=== PATIENT | female | born 1950 | race American Indian/Alaskan Native ===

== ENCOUNTER 2017-04-08 16:58 | Inpatient (IN) | payer OTHER ==
[2017-04-08] VITALS (8 sets, daily range): BP systolic 109–164; BP diastolic 47–86
[~2017-04-08] VITALS: Ht 162.6 cm; Wt 114.7 kg
[2017-04-08] MEDS ORDERED: SODIUM CHLORIDE 0.9% 1,000ML IVBOLUS ONE (18:00)
[2017-04-08] MEDS ORDERED: SODIUM CHLORIDE FLUSH 10ML SYR IVF ONE (18:00)
[2017-04-08] MEDS ORDERED: MULT-6 PO (18:05)
[2017-04-08] MEDS ORDERED: LOSA100T6 PO (18:05)
[2017-04-08] MEDS ORDERED: LOVA10TA PO (18:05)
[2017-04-08] MEDS ORDERED: METF500T4 PO (18:06)
[2017-04-08] MEDS ORDERED: FISH1CAP PO (18:07)
[2017-04-08 18:22] LABS: WHITE BLOOD COUNT 12.5 x10^3/uL (3.4-10)
[2017-04-08 18:25] LABS: ASPARTATE AMINO TRANSFERASE 15 U/L (15-37); BLOOD UREA NITROGEN 16 mg/dL (7-18); HEMATOCRIT 19.9 % (34.6-47.8); HEMOGLOBIN 6.1 g/dL (11.7-16.4)
[2017-04-08] MEDS ORDERED: PANTOPRAZOLE 40 MG IV IVPush ONE (18:30)
[2017-04-08] MEDS ORDERED: PANTOPRAZOLE 40 MG IV ONE (18:35)
[2017-04-08 18:49] LABS: ANISOCYTOSIS 1+; POLYCHROMASIA 1+
[2017-04-08] MEDS ORDERED: ACETAMINOPHEN 325 MG TABLET PO PRN (20:30)
[2017-04-08] MEDS ORDERED: DOCUSATE 100 MG CAPSULE PO PRN (20:30)
[2017-04-08] MEDS ORDERED: hydrALAzine 20 MG/ML, 1ML IVPush PRN (20:30)
[2017-04-08] MEDS ORDERED: morphine SULFATE 10 MG/ML, 1ML IVPush PRN (20:30)
[2017-04-08] MEDS ORDERED: BISACODYL 10 MG SUPP PR PRN (20:30)
[2017-04-08] MEDS ORDERED: ONDANSETRON 2MG/ML, 2ML IVPush PRN (20:30)
[2017-04-08] MEDS ORDERED: ENALAPRILAT 1.25 MG/ML, 2ML IVPush PRN (20:30)
[2017-04-08] MEDS ORDERED: OXYcodone IR 5MG TABLET PO PRN (20:30)
[2017-04-08] MEDS ORDERED: POLYETHYLENE GLYCOL 17 GM PACKET PO PRN (20:30)
[2017-04-08] MEDS ORDERED: PANTOPRAZOLE 80 MG in SODIUM CHLORIDE 0.9% 50 ML IV ONE (21:00)
[2017-04-08] MEDS: SODIUM CHLORIDE 0.9% 1,000 ML IV SCH (22:51)
[2017-04-08] MEDS: PANTOPRAZOLE 80 MG in SODIUM CHLORIDE 0.9% 100 ML IV SCH (22:55)
[2017-04-09] VITALS (7 sets, daily range): BP systolic 129–147; BP diastolic 68–88
[2017-04-09 03:02] LABS: WHITE BLOOD COUNT 12.2 x10^3/uL (3.4-10)
[2017-04-09 03:06] LABS: HEMATOCRIT 21.3 % (34.6-47.8); HEMOGLOBIN 6.9 g/dL (11.7-16.4)
[2017-04-09 03:07] LABS: ASPARTATE AMINO TRANSFERASE 16 U/L (15-37); BLOOD UREA NITROGEN 15 mg/dL (7-18)
[2017-04-09 03:31] LABS: DIFF TOTAL CELLS COUNTED 100 CELL DIFF
[2017-04-09 03:34] LABS: VERIFY COUNTS? YES
[2017-04-09 03:35] LABS: HYPOCHROMIA 1+; MICROCYTOSIS 1+; POLYCHROMASIA 1+
[2017-04-09 04:13] LABS: PATH.CAST-FLAG NOT PRESENT; SPERM-FLAG NOT PRESENT; SRC-FLAG NOT PRESENT; XTAL-FLAG NOT PRESENT; YLC-FLAG NOT PRESENT
[2017-04-09] MEDS: SODIUM CHLORIDE 0.9% 1,000 ML IV SCH (08:29)
[2017-04-09 08:36] LABS: HEMATOCRIT 25.6 % (34.6-47.8); HEMOGLOBIN 8.2 g/dL (11.7-16.4)
[2017-04-09] MEDS: CEFTRIAXONE PMX 1GM/50ML 50 ML IV SCH (11:10)
[2017-04-09] MEDS: PANTOPRAZOLE 80 MG in SODIUM CHLORIDE 0.9% 100 ML IV SCH ×2 (11:10→20:57)
[2017-04-09] MEDS ORDERED: INSULIN ASPART 100 UNITS/ML, PEN SQ-INSULIN SCH (13:00)
[2017-04-09 14:35] LABS: HEMATOCRIT 26.4 % (34.6-47.8); HEMOGLOBIN 8.6 g/dL (11.7-16.4)
[2017-04-09] MEDS: INSULIN ASPART 100 UNITS/ML, PEN SQ-INSULIN SCH ×2 (16:00→19:19)
[2017-04-09] MEDS ORDERED: ACETAMINOPHEN 325 MG TABLET PO PRN (18:30)
[2017-04-09] MEDS ORDERED: POLYETHYLENE GLYCOL 17 GM PACKET PO PRN (18:30)
[2017-04-09] MEDS ORDERED: BISACODYL 10 MG SUPP PR PRN (18:30)
[2017-04-09] MEDS ORDERED: ENALAPRILAT 1.25 MG/ML, 2ML IVPush PRN (18:30)
[2017-04-09] MEDS ORDERED: ONDANSETRON 2MG/ML, 2ML IVPush PRN (18:30)
[2017-04-09] MEDS ORDERED: OXYcodone IR 5MG TABLET PO PRN (18:30)
[2017-04-09] MEDS ORDERED: DOCUSATE 100 MG CAPSULE PO PRN (18:30)
[2017-04-09] MEDS ORDERED: hydrALAzine 20 MG/ML, 1ML IVPush PRN (18:30)
[2017-04-09 21:00] LABS: HEMATOCRIT 25.6 % (34.6-47.8); HEMOGLOBIN 8.3 g/dL (11.7-16.4)
[2017-04-10 03:03] VITALS: BP 132/77
[2017-04-10 05:33] LABS: BLOOD UREA NITROGEN 10 mg/dL (7-18)
[2017-04-10 06:03] LABS: HEMATOCRIT 24.4 % (34.6-47.8); HEMOGLOBIN 7.9 g/dL (11.7-16.4); WHITE BLOOD COUNT 10.7 x10^3/uL (3.4-10)
[2017-04-10] MEDS: INSULIN ASPART 100 UNITS/ML, PEN SQ-INSULIN SCH ×2 (07:00→11:00)
[2017-04-10 07:20] VITALS: BP 128/73
[2017-04-10] MEDS ORDERED: MIDAZOLAM 1 MG/ML, 5ML ONE (08:44)
[2017-04-10] MEDS ORDERED: FENTANYL PF 100 MCG/2ML ONE (08:44)
[2017-04-10] MEDS: PANTOPRAZOLE 80 MG in SODIUM CHLORIDE 0.9% 100 ML IV SCH (10:00)
[2017-04-10] MEDS ORDERED: OMEP-110 PO (10:23)
[2017-04-10] MEDS ORDERED: LACT1CAP24 PO (10:23)
[2017-04-10] MEDS ORDERED: CEFD300C37 PO (10:23)
[2017-04-10] MEDS ORDERED: FERR325T18 PO (10:23)
[2017-04-10] MEDS: CEFTRIAXONE PMX 1GM/50ML 50 ML IV SCH (11:00)
== END 2017-04-10 11:47 | disposition home or self-care (01) | DRG 377 ==
LOC: ED 19:19 → EDIP 19:20 → 5SO 20:57
PROVIDERS: ADMIT Internal Medicine; ATTEND Internal Medicine
PROC: 30233N1 Transfusion of Nonautologous Red Blood Cells into Peripheral Vein, Percutaneous Approach (ICD-10-PCS; principal; 2017-04-08)
PROC: 0DB98ZX Excision of Duodenum, Via Natural or Artificial Opening Endoscopic, Diagnostic (ICD-10-PCS; 2017-04-10)
DX: K92.2 Gastrointestinal hemorrhage, unspecified (principal); N17.0 Acute kidney failure with tubular necrosis; E44.0 Moderate protein-calorie malnutrition; I10 Essential (primary) hypertension; E11.9 Type 2 diabetes mellitus without complications; D50.9 Iron deficiency anemia, unspecified; D62 Acute posthemorrhagic anemia; N17.9 Acute kidney failure, unspecified; Z68.41 Body mass index [BMI] 40.0-44.9, adult; N39.0 Urinary tract infection, site not specified; E78.5 Hyperlipidemia, unspecified; D53.9 Nutritional anemia, unspecified; D75.89 Other specified diseases of blood and blood-forming organs; K26.9 Duodenal ulcer, unspecified as acute or chronic, without hemorrhage or perforation; K44.9 Diaphragmatic hernia without obstruction or gangrene; Z82.49 Family history of ischemic heart disease and other diseases of the circulatory system; Z87.11 Personal history of peptic ulcer disease
CPT/HCPCS: 36415; 36430; 71010; 80048; 80053; 80061; 81001; 82962; 83036; 83690; 83735; 84439; 84443; 85014; 85018; 85025; 85610; 85730; 86677; 86850; 86900; 86923; 87086; 88305; 93005; 96361; 96374; 99152; 99153; J0696; J2250; J3010; C9113; J7030; P9016